=== PATIENT | male | born 1975 | race Two or more races ===

== ENCOUNTER 2019-01-06 18:37 | Inpatient (IN) | payer MEDICARE, MEDICAID ==
[~2019-01-06] VITALS: Ht 188 cm; Wt 56.7 kg
[2019-01-06] MEDS ORDERED: LORA1TAB3 PO (19:27)
[2019-01-06] MEDS ORDERED: FLUV50 PO (19:27)
[2019-01-06 20:01] LABS: BASOPHILS % (AUTO) 0.5 % (0.0-2.0); HEMATOCRIT 40.7 % (41-53); HEMOGLOBIN 13.8 g/dL (13.5-17.5); LYMPHOCYTES # (AUTO) 1.4 K/uL (1.0-4.8); LYMPHOCYTES % (AUTO) 14.8 % (22.0-44.0); MEAN CORPUSCULAR HEMOGLOBIN 33.9 pg (26.0-34.0); MEAN CORPUSCULAR HGB CONC 33.8 G/dL (31.0-37.0); MEAN CORPUSCULAR VOLUME 100 fL (80-100); MONOCYTES # (AUTO) 0.7 K/uL (0.1-1.0); MONOCYTES % (AUTO) 7.9 % (2.0-9.0); NEUTROPHILS # (AUTO) 6.7 K/uL (1.8-7.7); NEUTROPHILS % (AUTO) 73.8 % (40.0-70.0); PLATELET COUNT (AUTO) 212 K/uL (150-450); RED BLOOD CELL COUNT(AUTO) 4.06 MIL/uL (4.50-5.90); RED CELL DISTRIBUTION WIDTH 12.6 % (11.5-14.5)
[2019-01-06 20:10] LABS: ANION GAP 12 mmol/L (8-16); CALCIUM, TOTAL 9.7 mg/dL (8.8-10.5); CARBON DIOXIDE 25 mmol/L (22-29); CHLORIDE 103 mmol/L (98-107); CREATININE 0.91 mg/dL (0.60-1.30); GLOMERULAR FILTR. RATE CALC > 60 mL/min (>60); GLUCOSE,RANDOM 95 mg/dL (70-110); POTASSIUM 3.9 mmol/L (3.5-5.1); SODIUM SERUM 140 mmol/L (136-145); UREA NITROGEN, BLOOD 15 mg/dL (7-18)
[2019-01-06 20:16] LABS: ALANINE AMINOTRANSFERASE 26 U/L (12-78); ALBUMIN 3.9 g/dL (3.4-5.0); ALKALINE PHOSPHATASE 77 U/L (46-116); ASPARTATE AMINOTRANSFERASE 14 U/L (15-37); BILIRUBIN,TOTAL 0.7 mg/dL (0.1-1.0); TOTAL PROTEIN, SERUM 6.8 g/dL (6.4-8.2)
[2019-01-06] MEDS ORDERED: LORazepam 1 MG TABLET PO ONE (21:45)
[2019-01-06 22:25] LABS: AMPHET/METH SCREEN,URINE POSITIVE (NEGATIVE); BARBITURATE SCREEN, URINE NEGATIVE (NEGATIVE); BENZODIAZEPINES SCREEN,URINE NEGATIVE (NEGATIVE); CANNABINOID SCREEN,URINE POSITIVE (NEGATIVE); COCAINE SCREEN,URINE NEGATIVE (NEGATIVE); METHADONE SCREEN, URINE NEGATIVE (NEGATIVE); OPIATE SCREEN,URINE NEGATIVE (NEGATIVE)
[2019-01-06 22:28] LABS: PHENCYCLIDINE SCREEN,URINE NEGATIVE (NEGATIVE)
[2019-01-07] MEDS ORDERED: HALOPERIDOL 5 MG TABLET PO PRN
[2019-01-07] MEDS ORDERED: ZOLPIDEM TARTRATE 10 MG TABLET PO PRN
[2019-01-07 02:46] VITALS: BP 138/86
[2019-01-07] MEDS: RisperiDONE 2 MG TABLET PO SCH ×2 (09:06→16:52)
[2019-01-07] MEDS ORDERED: ACETAMINOPHEN 325 MG TABLET PO PRN (09:15)
[2019-01-07] MEDS ORDERED: DOCUSATE SODIUM 100 MG CAPSULE PO PRN (09:15)
[2019-01-07] MEDS ORDERED: GuaiFENesin/D-METHORPHAN [SUGAR-FREE] 200-20MG/10 ML SYRUP UDCUP PO PRN (09:15)
[2019-01-07] MEDS ORDERED: MAG HYDROX/AL HYDROX/SIMETH ES 30 ML SUSPENSION UDCUP PO PRN (09:15)
[2019-01-07] MEDS ORDERED: IBUPROFEN 400 MG TABLET PO PRN (09:15)
[2019-01-07] MEDS ORDERED: PETROLATUM,WHITE 28 GM JELLY TP PRN (09:15)
[2019-01-07] MEDS ORDERED: NICOTINE 14 MG/24 HOUR PATCH TD PRN (09:15)
[2019-01-07] MEDS ORDERED: ONDANSETRON HCL 4 MG TABLET PO PRN (09:15)
[2019-01-07] MEDS ORDERED: MAGNESIUM HYDROXIDE SUSPENSION 30 ML UDCUP PO PRN (09:15)
[2019-01-07] MEDS ORDERED: LOPERAMIDE HCL 2 MG CAPSULE PO PRN (09:15)
[2019-01-07] MEDS ORDERED: CloNIDine HCL 0.1 MG TABLET PO PRN (09:15)
[2019-01-07] MEDS ORDERED: ALBUTEROL SULFATE HFA 90 MCG/PUFF 8 GM INHALER IH PRN (09:15)
[2019-01-07] MEDS: FluvoxaMINE MALEATE 50 MG TABLET PO SCH (09:20)
[2019-01-07 11:05] VITALS: BP 137/75
[2019-01-07 16:30] VITALS: BP 122/68
[2019-01-07] MEDS: LORazepam 2 MG TABLET PO PRN (20:18)
[2019-01-08 08:00] VITALS: BP 117/72
[2019-01-08] MEDS: FluvoxaMINE MALEATE 50 MG TABLET PO SCH (08:37)
[2019-01-08] MEDS: RisperiDONE 2 MG TABLET PO SCH ×2 (08:37→16:24)
[2019-01-08 19:24] VITALS: BP 119/68
[2019-01-09 08:00] VITALS: BP 109/87
[2019-01-09] MEDS: RisperiDONE 2 MG TABLET PO SCH ×2 (08:14→16:02)
[2019-01-09] MEDS: FluvoxaMINE MALEATE 50 MG TABLET PO SCH (08:14)
[2019-01-09] MEDS: LORazepam 2 MG TABLET PO PRN ×2 (08:19→20:01)
[2019-01-09 17:05] VITALS: BP 124/87
[2019-01-10 08:30] VITALS: BP 112/61
[2019-01-10] MEDS: RisperiDONE 2 MG TABLET PO SCH ×2 (08:33→16:17)
[2019-01-10] MEDS: LORazepam 2 MG TABLET PO PRN ×2 (08:33→20:38)
[2019-01-10] MEDS: FluvoxaMINE MALEATE 50 MG TABLET PO SCH (08:34)
[2019-01-10 16:54] VITALS: BP 113/70
[2019-01-11] MEDS: LORazepam 2 MG TABLET PO PRN (08:11)
[2019-01-11] MEDS: RisperiDONE 2 MG TABLET PO SCH ×2 (08:11→16:47)
[2019-01-11] MEDS: FluvoxaMINE MALEATE 50 MG TABLET PO SCH (08:12)
[2019-01-11 09:17] VITALS: BP 111/74
[2019-01-11] MEDS ORDERED: RISP2 PO (14:36)
== END 2019-01-11 19:15 | disposition home or self-care (01) | DRG 885 ==
LOC: EMS 18:38 → 3EI 01-07 00:30
PROVIDERS: ADMIT Psychiatry & Neurology Child & Adolescent Psychiatry; ATTEND Psychiatry & Neurology Child & Adolescent Psychiatry
DX: F20.0 Paranoid schizophrenia (principal); G89.4 Chronic pain syndrome; F19.10 Other psychoactive substance abuse, uncomplicated; F10.10 Alcohol abuse, uncomplicated; Y90.9 Presence of alcohol in blood, level not specified; F12.90 Cannabis use, unspecified, uncomplicated; F15.10 Other stimulant abuse, uncomplicated; F17.210 Nicotine dependence, cigarettes, uncomplicated; F42.9 Obsessive-compulsive disorder, unspecified; F43.10 Post-traumatic stress disorder, unspecified
CPT/HCPCS: G0480